=== PATIENT | female | born 1945 | race Caucasian/White ===

== ENCOUNTER → 2019-03-09 | Outpatient (CLI) | payer MEDICARE ==
--- NOTE | 2019-03-09 13:57 | Diagnostic Imaging Report ---
INDICATION: Postmenopausal screening for osteoporosis. COMPARISON: None. FINDINGS: AP Spine L1-L4: [BMD (g/cm2): 1.074] [T-Score: -1.0] [Z-Score: 0.7] [BMD Previous: N/A] [BMD % Change: N/A] LT Hip Neck: [BMD (g/cm2): 0.764] [T-Score: -2.0] [Z-Score: -0.2] LT Hip Total: [BMD (g/cm2):0.794] [T-Score:-1.7] [Z-Score: -0.1] [BMD Previous: N/A] [BMD % Change: N/A] RT Hip Neck: [BMD (g/cm2):0.766] [T-Score:-2.0] [Z-Score:-0.1] RT Hip Total: [BMD (g/cm2):0.804] [T-score:-1.6] [Z-Score:0.0] [BMD Previous:N/A] [BMD % Change:N/A] *Indicates significant change from prior examination based on 95% confidence level. World Health Organization criteria for BMD interpretation classify patients as Normal (T-score at or above -1.0), Osteopenic (T-score between -1.0 and -2.5) or Osteoporotic (T-score at or below -2.5). LIMITATIONS AND MODIFICATION: None. FRACTURE RISK (FRAX SCORE): The ten year probability of (%): Major Osteoporotic Fracture: [12.8] Hip Fracture: [2.8] IMPRESSION: 1. Osteopenia (Low bone mass). 2. Baseline examination. 3. See below National Osteoporosis Foundation guidelines on when to potentially initiate pharmacologic therapy. Based on the National Osteoporosis Foundation Guidelines, pharmacologic treatment should be initiated in any of the following, unless clinical conditions suggest otherwise: * Any patient with prior fragility fracture of the hip or vertebrae. A spine fracture indicates 5X risk for subsequent spine fracture and 2X risk for subsequent hip fracture. * Osteoporosis (T-score <-2.5). * Postmenopausal women and men age 50 and older with low bone mass/osteopenia (T-score between -1.0 and -2.5) by DXA and 10-year major osteoporotic fracture greater than 20% or a 10-year probability of hip fracture greater than 3%. These fracture risks are supplied above in the FRAX score, if applicable. * Clinician judgement and/or patient preferences may indicate treatment for people with 10-year fracture probabilities above or below these levels. Dictated by: Dictated on workstation # [id number]
== END ==
LOC: RAD 10:33
PROVIDERS: ATTEND Nurse Practitioner Family
DX: Z13.820 Encounter for screening for osteoporosis (principal); M85.80 Other specified disorders of bone density and structure, unspecified site; Z78.0 Asymptomatic menopausal state
CPT/HCPCS: 77080

== ENCOUNTER 2022-09-24 05:41 | Outpatient (CLI) | payer MEDICARE ==
[~2022-09-24] VITALS: Ht 160 cm; Wt 47.6 kg
[2022-09-25] MEDS ORDERED: PROP10TA8 PO (09:42)
[2022-09-25] MEDS ORDERED: PRIM250T33 PO (09:42)
[2022-09-25] MEDS ORDERED: CALC600T91 PO (09:45)
[2022-09-25] MEDS ORDERED: MV-M1TAB57 PO (09:45)
== END 2022-09-25 09:53 ==
LOC: PREOP 05:41
PROVIDERS: ATTEND Surgery
DX: Z01.818 Encounter for other preprocedural examination (principal)

== ENCOUNTER 2022-10-01 11:50 | Day surgery (SDC) | payer MEDICARE ==
[~2022-10-01] VITALS: Ht 160 cm; Wt 47.6 kg
[~2022-10-01 11:50] MED LIST: CALC600T91 PO; MV-M1TAB57 PO; PRIM250T33 PO; PROP10TA8 PO
[2022-10-01] MEDS ORDERED: LACTATED RINGERS 1,000 ML IV STA (11:51)
[2022-10-01] MEDS ORDERED: LACTATED RINGERS 1,000 ML IV ONE (11:53)
[2022-10-01 12:10] VITALS: BP 125/59
--- NOTE | 2022-10-01 12:17 | Progress Note-Pre Operative ---
Pre-Operative Progress Note Date of Available H&P: Sep 02, 2022 Date H&P Reviewed: Oct 01, 2022 Time H&P Reviewed: 12:17 History & Physical: H&P Reviewed, Patient Examed, No changes noted Pre-Operative Diagnosis: Screening Colonoscopy ALEYDA ENAMORADO DO Oct 01, 2022 12:17
[2022-10-01] MEDS ORDERED: PROPOFOL INJECTION 50 ML IV ONE (12:55)
[2022-10-01 13:25] VITALS: BP 76/40
--- NOTE | 2022-10-01 13:29 | Anesthesia-General Post-Op ---
MAC Patient Condition Mental Status/LOC: Same as Preop Cardiovascular: Satisfactory Nausea/Vomiting: Absent Respiratory: Satisfactory Pain: Controlled Complications: Absent Post Op Complications Complications None Follow Up Care/Instructions Patient Instructions None needed. Anesthesiology Discharge Order Discharge Order Patient is doing well, no complaints, stable vital signs, no apparent adverse anesthesia problems. No complications reported per nursing. ZULEMA ACUÑA CRNA Oct 01, 2022 13:29
[2022-10-01 13:30] VITALS: BP 86/48
--- NOTE | 2022-10-01 13:34 | Discharge Inst-Simple/Standard ---
Discharge Inst-Standard Patient Instructions/Follow Up Plan of Care/Instructions/FU: Please follow-up with Dr. Reyes in 2 weeks in outpatient clinic Activity as Tolerated: Yes Discharge Diet: Regular Diet ALEYDA REYES DO Oct 01, 2022 13:34
[2022-10-01 13:35] VITALS: BP 92/50
[2022-10-01 13:55] VITALS: BP 116/52
[2022-10-01 14:17] VITALS: BP 116/52
--- NOTE | 2022-10-01 22:37 | OPERATIVE REPORT ---
DATE OF SERVICE: 10/01/2022 PREOPERATIVE DIAGNOSIS: Screening colonoscopy. POSTOPERATIVE DIAGNOSIS: Colon polyps. PROCEDURE: Colonoscopy with hot biopsy polypectomy, x2. SURGEON: Aleyda Reyes DO ANESTHESIA: Per [employer]. ESTIMATED BLOOD LOSS: None. SPECIMENS: None. INDICATIONS: The patient is a 77-year-old female, wanting screening colonoscopy. She understands risks and benefits of procedure and wishes to proceed. Consent was signed and in chart. DESCRIPTION OF PROCEDURE: The patient was taken to endoscopy suite, placed in left lateral recumbent position. Timeout was performed. Digital rectal exam was performed. No palpable polyps, masses, ulcerations. Scope was inserted into the rectum and advanced all the way to the cecum with minimal difficulty. Prep was adequate. Scope was then slowly retracted back. A polyp was present in the cecum, which hot biopsy polypectomy was performed. Scope was then continuously retracted back in the ascending colon, where a polyp was present, which hot biopsy polypectomy was performed. Scope was then continued slowly retracted back. No polyps, masses or ulcerations in the remainder of the ascending, transverse, descending and sigmoid colon. Once in the rectum, scope was retroflexed, noting no other pathology. Scope was returned to its normal position and slowly withdrawn until completely removed. The patient tolerated the procedure well without complications, taken to recovery room in stable condition. RECOMMENDATIONS: The patient will follow up on pathology in 2 weeks. Would not need a repeat colonoscopy unless has change in condition due to age. Any issues before that be seen at that time. She will follow up in 2 weeks to discuss pathology results. Job ID: [id number] DocumentID: [id number] Dictated Date: 10/01/2022 13:22:37 [employer] Date: 10/01/2022 22:34:00 Dictated By: ALEYDA REYES DO
== END 2022-10-01 14:17 | disposition home or self-care (01) ==
LOC: ENDO 11:50
PROVIDERS: ATTEND Surgery
DX: Z12.11 Encounter for screening for malignant neoplasm of colon (principal); D12.0 Benign neoplasm of cecum; D12.2 Benign neoplasm of ascending colon
CPT/HCPCS: 88305